=== PATIENT | male | born 1980 | race Caucasian/White ===

== ENCOUNTER 2025-08-02 07:07 | Inpatient (IN) | payer OTHER ==
[~2025-08-02] VITALS: Ht 175.3 cm; Wt 48.3 kg
[2025-08-02] MEDS ORDERED: HYDROX5L PO (07:30)
[2025-08-02] MEDS ORDERED: ATOR10TA69 PO (07:32)
[2025-08-02] MEDS ORDERED: PREG50 PO (07:35)
[2025-08-02] MEDS ORDERED: GABA-1181 PO (07:35)
[2025-08-02] MEDS ORDERED: METF-1211 PO (07:35)
[2025-08-02] MEDS ORDERED: DOXY50CA2 PO (07:35)
[2025-08-02 07:54] LABS: PLATELET COUNT (AUTO) 322 K/uL (150-450); RED BLOOD CELL COUNT(AUTO) 4.25 MIL/uL (4.50-5.90); RED CELL DISTRIBUTION WIDTH 13.6 % (11.5-14.5); WHITE BLOOD COUNT (AUTO) 7.9 K/uL (4.5-11.0)
[2025-08-02 08:01] LABS: CALCIUM, TOTAL 9.2 mg/dL (8.8-10.5); CREATININE 0.52 mg/dL (0.60-1.30); GLOMERULAR FILTR. RATE CALC > 60 mL/min (>60); GLUCOSE,RANDOM 308 mg/dL (70-110); SODIUM SERUM 140 mmol/L (136-145); UREA NITROGEN, BLOOD 4 mg/dL (7-18)
[2025-08-02] MEDS: INSULIN REGULAR, HUMAN 100 UNITS/ML SQ ONE (08:59)
[2025-08-02 11:50] VITALS: BP 110/75; PULSE 93; RESP 18; TEMP 98; O2SAT 97
[2025-08-02] MEDS ORDERED: ACETAMINOPHEN 325 MG TABLET PO PRN (12:30)
[2025-08-02] MEDS ORDERED: ONDANSETRON HCL 4 MG/2 ML VIAL IVP PRN (12:30)
[2025-08-02] MEDS ORDERED: DEXTROSE 50%-WATER 25 GM/50 ML SYRINGE IVP PRN (12:30)
[2025-08-02] MEDS ORDERED: ZOLPIDEM TARTRATE 5 MG TABLET PO PRN (12:30)
[2025-08-02] MEDS ORDERED: BISACODYL 10 MG RECTAL RECTAL SUPPOSITORY PR PRN (12:30)
[2025-08-02] MEDS ORDERED: MAGNESIUM HYDROXIDE SUSPENSION 30 ML UDCUP PO PRN (12:30)
[2025-08-02] MEDS ORDERED: HYDR25TA83 PO (12:36)
[2025-08-02] MEDS ORDERED: DOXY-354 PO (12:36)
[2025-08-02] MEDS ORDERED: SODIUM CHLORIDE 3% 15 ML NEB SOLUTION NEB ONE (14:57)
[2025-08-02 16:30] VITALS: PULSE 93; RESP 18; O2SAT 97
[2025-08-02] MEDS: HEPARIN SODIUM,PORCINE 5,000 UNITS/ML VIAL SQ SCH (17:23)
[2025-08-02] MEDS: INSULIN LISPRO 100 UNITS/ML SQ PRN (17:26)
[2025-08-02 19:59] VITALS: BP 123/73; PULSE 91; RESP 18; TEMP 98.2; O2SAT 96
[2025-08-02] MEDS: DOCUSATE SODIUM 100 MG CAPSULE PO SCH (21:00)
[2025-08-02] MEDS: INSULIN GLARGINE,HUM.REC.ANLOG 100 UNITS/ML SQ SCH (21:02)
[2025-08-02 22:49] LABS: MTB PCR w/Rif. Resistance-SPUT NOT DETECTED (Not Detectd)
[2025-08-02 23:41] VITALS: BP 99/60; PULSE 87; RESP 17; TEMP 98.2; O2SAT 99
[2025-08-03] MEDS ORDERED: SODIUM CHLORIDE 3% 15 ML NEB SOLUTION NEB ONE ×2 (01:35→20:30)
[2025-08-03 01:43] VITALS: PULSE 90; RESP 18; O2SAT 95
[2025-08-03 03:39] VITALS: BP 126/79; PULSE 84; RESP 17; TEMP 98.2; O2SAT 99
[2025-08-03 07:30] VITALS: BP 112/74; PULSE 89; RESP 18; TEMP 97.5; O2SAT 100
[2025-08-03] MEDS: PANTOPRAZOLE SODIUM 40 MG DR TABLET PO SCH (08:47)
[2025-08-03] MEDS: ATORVASTATIN CALCIUM 10 MG TABLET PO SCH (08:48)
[2025-08-03] MEDS: GABAPENTIN 300 MG CAPSULE PO SCH (08:48)
[2025-08-03 09:27] LABS: PLATELET COUNT (AUTO) 375 K/uL (150-450); RED BLOOD CELL COUNT(AUTO) 4.49 MIL/uL (4.50-5.90); RED CELL DISTRIBUTION WIDTH 13.3 % (11.5-14.5); WHITE BLOOD COUNT (AUTO) 9.6 K/uL (4.5-11.0)
[2025-08-03 09:32] LABS: CALCIUM, TOTAL 9.3 mg/dL (8.8-10.5); CREATININE 0.48 mg/dL (0.60-1.30); GLOMERULAR FILTR. RATE CALC > 60 mL/min (>60); GLUCOSE,RANDOM 83 mg/dL (70-110); SODIUM SERUM 141 mmol/L (136-145); UREA NITROGEN, BLOOD 7 mg/dL (7-18)
[2025-08-03 09:38] LABS: ASPARTATE AMINOTRANSFERASE 11.0 U/L (15-37); TOTAL PROTEIN, SERUM 7.3 g/dL (6.4-8.2)
[2025-08-03 10:30] VITALS: BP 119/78; PULSE 82; RESP 18; TEMP 98; O2SAT 99
[2025-08-03 11:06] LABS: GLUCOMETER DEV NAME(LOC) 5N.2C; GLUCOSE,POINT OF CARE 312 MG/DL (70-110)
[2025-08-03 11:06] LABS: GLUCOMETER DEV NAME(LOC) 5N.2C; GLUCOSE,POINT OF CARE 302 MG/DL (70-110)
[2025-08-03 11:06] LABS: GLUCOMETER DEV NAME(LOC) 5S.2E; GLUCOSE,POINT OF CARE 216 MG/DL (70-110)
[2025-08-03 11:45] LABS: GLUCOMETER DEV NAME(LOC) 5S.2E; GLUCOSE,POINT OF CARE 242 MG/DL (70-110)
[2025-08-03] MEDS: PYRAZINAMIDE 500 MG TABLET PO SCH (12:12)
[2025-08-03] MEDS: ETHAMBUTOL HCL 400 MG TABLET PO SCH (12:15)
[2025-08-03 15:28] VITALS: BP 113/72; PULSE 89; RESP 19; TEMP 98.1; O2SAT 98
[2025-08-03 17:56] LABS: GLUCOMETER DEV NAME(LOC) 5S.2E; GLUCOSE,POINT OF CARE 356 MG/DL (70-110)
[2025-08-03] MEDS: INSULIN GLARGINE,HUM.REC.ANLOG 100 UNITS/ML SQ SCH (20:16)
[2025-08-03 21:20] VITALS: BP 116/68; PULSE 92; RESP 18; TEMP 98.1; O2SAT 100
[2025-08-03 22:31] LABS: GLUCOMETER DEV NAME(LOC) 5N.2C; GLUCOSE,POINT OF CARE 74 MG/DL (70-110)
[2025-08-04] VITALS (7 sets, daily range): BP systolic 103–130; BP diastolic 56–80; PULSE 82–89; RESP 16–18; TEMP 97.8–98.6; O2SAT 98–100
[2025-08-04 06:15] LABS: PLATELET COUNT (AUTO) 371 K/uL (150-450); RED BLOOD CELL COUNT(AUTO) 3.99 MIL/uL (4.50-5.90); RED CELL DISTRIBUTION WIDTH 13.1 % (11.5-14.5); WHITE BLOOD COUNT (AUTO) 9.5 K/uL (4.5-11.0)
[2025-08-04 06:51] LABS: CALCIUM, TOTAL 8.9 mg/dL (8.8-10.5); CREATININE 0.51 mg/dL (0.60-1.30); GLOMERULAR FILTR. RATE CALC > 60 mL/min (>60); GLUCOSE,RANDOM 146 mg/dL (70-110); SODIUM SERUM 137 mmol/L (136-145); UREA NITROGEN, BLOOD 9 mg/dL (7-18)
[2025-08-04] MEDS ORDERED: 0.9% SODIUM CHLORIDE 5 ML NEB SOLUTION NEB ONE (08:21)
[2025-08-04 13:26] LABS: GLUCOMETER DEV NAME(LOC) 5S.2E; GLUCOSE,POINT OF CARE 262 MG/DL (70-110)
[2025-08-04 13:26] LABS: GLUCOMETER DEV NAME(LOC) 5S.2E; GLUCOSE,POINT OF CARE 144 MG/DL (70-110)
[2025-08-04 19:05] LABS: GLUCOMETER DEV NAME(LOC) 5N.2C; GLUCOSE,POINT OF CARE 196 MG/DL (70-110)
[2025-08-04 22:11] LABS: GLUCOMETER DEV NAME(LOC) 5N.2C; GLUCOSE,POINT OF CARE 154 MG/DL (70-110)
[2025-08-05 00:33] VITALS: BP 126/60; PULSE 84; RESP 18; TEMP 98.4; O2SAT 97
[2025-08-05 06:10] LABS: PLATELET COUNT (AUTO) 388 K/uL (150-450); RED BLOOD CELL COUNT(AUTO) 4.13 MIL/uL (4.50-5.90); RED CELL DISTRIBUTION WIDTH 13.3 % (11.5-14.5); WHITE BLOOD COUNT (AUTO) 8.7 K/uL (4.5-11.0)
[2025-08-05 06:17] VITALS: BP 112/72; PULSE 80; RESP 18; TEMP 98.7; O2SAT 98
[2025-08-05 06:54] LABS: CALCIUM, TOTAL 9.1 mg/dL (8.8-10.5); CREATININE 0.52 mg/dL (0.60-1.30); GLOMERULAR FILTR. RATE CALC > 60 mL/min (>60); GLUCOSE,RANDOM 159 mg/dL (70-110); SODIUM SERUM 135 mmol/L (136-145); UREA NITROGEN, BLOOD 13 mg/dL (7-18)
[2025-08-05] MEDS ORDERED: SODIUM CHLORIDE 3% 15 ML NEB SOLUTION NEB ONE (07:59)
[2025-08-05 08:30] VITALS: BP 101/61; PULSE 88; RESP 18; TEMP 98.1; O2SAT 97
[2025-08-05 12:29] VITALS: BP 102/68; PULSE 86; RESP 18; TEMP 98.4; O2SAT 98
[2025-08-05 16:46] VITALS: BP 115/75; PULSE 81; RESP 17; TEMP 98.6; O2SAT 98
[2025-08-05 17:26] LABS: GLUCOMETER DEV NAME(LOC) 5N.2C; GLUCOSE,POINT OF CARE 300 MG/DL (70-110)
[2025-08-05 17:31] LABS: GLUCOMETER DEV NAME(LOC) 5S.2E; GLUCOSE,POINT OF CARE 320 MG/DL (70-110)
[2025-08-05 17:31] LABS: GLUCOMETER DEV NAME(LOC) 5S.2E; GLUCOSE,POINT OF CARE 160 MG/DL (70-110)
[2025-08-05 22:34] LABS: MTB PCR w/Rif. Resistance-SPUT NOT DETECTED (Not Detectd)
[2025-08-06 00:28] VITALS: BP 131/73; PULSE 86; RESP 18; TEMP 98.4; O2SAT 99
[2025-08-06 04:41] VITALS: BP 112/82; PULSE 87; RESP 18; TEMP 98.6; O2SAT 99
[2025-08-06 05:26] LABS: GLUCOMETER DEV NAME(LOC) 5N.2C; GLUCOSE,POINT OF CARE 183 MG/DL (70-110)
[2025-08-06 06:06] LABS: QUANTIFERON+, Nil Value 0.02 IU/mL; QUANTIFERON+,Mitogen Value >10.00 IU/mL; QUANTIFERON+,TB1 Antigen Value >10.00 IU/mL; QUANTIFERON+,TB2 Antigen Value >10.00 IU/mL; QUANTIFERON, TB GOLD PLUS Positive (Negative)
[2025-08-06 06:24] LABS: PLATELET COUNT (AUTO) 375 K/uL (150-450); RED BLOOD CELL COUNT(AUTO) 4.04 MIL/uL (4.50-5.90); RED CELL DISTRIBUTION WIDTH 13.3 % (11.5-14.5); WHITE BLOOD COUNT (AUTO) 8.7 K/uL (4.5-11.0)
[2025-08-06 06:37] LABS: CALCIUM, TOTAL 9.0 mg/dL (8.8-10.5); CREATININE 0.66 mg/dL (0.60-1.30); GLOMERULAR FILTR. RATE CALC > 60 mL/min (>60); GLUCOSE,RANDOM 265 mg/dL (70-110); SODIUM SERUM 135 mmol/L (136-145); UREA NITROGEN, BLOOD 17 mg/dL (7-18)
[2025-08-06 08:49] VITALS: BP 112/74; PULSE 93; RESP 16; TEMP 98.3; O2SAT 99
[2025-08-06 14:41] LABS: GLUCOMETER DEV NAME(LOC) 5N.1D; GLUCOSE,POINT OF CARE 266 MG/DL (70-110)
[2025-08-06 14:41] LABS: GLUCOMETER DEV NAME(LOC) 5N.1D; GLUCOSE,POINT OF CARE 306 MG/DL (70-110)
[2025-08-06 16:01] VITALS: BP 109/68; PULSE 89; RESP 18; TEMP 97.9; O2SAT 98
[2025-08-06 18:41] LABS: GLUCOMETER DEV NAME(LOC) 5N.1D; GLUCOSE,POINT OF CARE 346 MG/DL (70-110)
[2025-08-06 19:48] VITALS: BP 112/77; PULSE 83; RESP 18; TEMP 98.4; O2SAT 99
[2025-08-06 23:26] VITALS: BP 107/71; PULSE 84; RESP 17; TEMP 97.9; O2SAT 100
[2025-08-07 03:24] VITALS: BP 124/68; PULSE 81; RESP 18; TEMP 98.2; O2SAT 98
[2025-08-07 06:20] LABS: GLUCOMETER DEV NAME(LOC) 5S.1E; GLUCOSE,POINT OF CARE 211 MG/DL (70-110)
[2025-08-07 08:00] VITALS: BP 122/74; PULSE 92; RESP 18; TEMP 98.2; O2SAT 99
[2025-08-07] MEDS ORDERED: INSULIN GLARGINE,HUM.REC.ANLOG 100 UNITS/ML SQ ONE (09:30)
[2025-08-07 12:30] VITALS: BP 113/69; PULSE 90; RESP 17; TEMP 98.1; O2SAT 98
[2025-08-07 13:00] LABS: GLUCOMETER DEV NAME(LOC) 5S.2E; GLUCOSE,POINT OF CARE 286 MG/DL (70-110)
[2025-08-07 13:56] LABS: GLUCOMETER DEV NAME(LOC) 5S.1E; GLUCOSE,POINT OF CARE 123 MG/DL (70-110)
[2025-08-07 15:15] VITALS: BP 115/70; PULSE 83; RESP 18; TEMP 98.2; O2SAT 100
[2025-08-07 18:06] LABS: GLUCOMETER DEV NAME(LOC) 5S.1E; GLUCOSE,POINT OF CARE 404 MG/DL (70-110)
[2025-08-07] MEDS: INSULIN LISPRO 100 UNITS/ML SQ ONE (18:20)
[2025-08-07] MEDS: INSULIN GLARGINE,HUM.REC.ANLOG 100 UNITS/ML SQ SCH (20:56)
[2025-08-07 20:58] VITALS: BP 95/65; PULSE 96; RESP 18; TEMP 98.1; O2SAT 98
[2025-08-07 21:36] VITALS: BP 109/64; RESP 19; O2SAT 99
[2025-08-08 00:08] VITALS: BP 109/72; PULSE 93; RESP 18; TEMP 98.2; O2SAT 98
[2025-08-08 01:45] LABS: GLUCOMETER DEV NAME(LOC) 5S.1E; GLUCOSE,POINT OF CARE 162 MG/DL (70-110)
[2025-08-08 01:45] LABS: GLUCOMETER DEV NAME(LOC) 5S.1E; GLUCOSE,POINT OF CARE 102 MG/DL (70-110)
[2025-08-08 01:45] LABS: GLUCOMETER DEV NAME(LOC) 5S.1E; GLUCOSE,POINT OF CARE 59 MG/DL (70-110)
[2025-08-08 04:30] VITALS: BP 116/72; PULSE 90; RESP 18; TEMP 98.2; O2SAT 98
[2025-08-08 06:05] LABS: GLUCOMETER DEV NAME(LOC) 5S.1E; GLUCOSE,POINT OF CARE 305 MG/DL (70-110)
[2025-08-08 07:45] LABS: GLUCOMETER DEV NAME(LOC) 5S.1E; GLUCOSE,POINT OF CARE 321 MG/DL (70-110)
[2025-08-08 08:34] VITALS: BP 123/73; PULSE 96; RESP 18; TEMP 98.2; O2SAT 100
[2025-08-08] MEDS ORDERED: INSULIN GLARGINE,HUM.REC.ANLOG 100 UNITS/ML SQ SCH (09:00)
[2025-08-08] MEDS ORDERED: ATOR10TA PO (11:12)
[2025-08-08] MEDS ORDERED: ETHA400T25 PO (11:14)
[2025-08-08] MEDS ORDERED: DOCU-385 PO (11:14)
[2025-08-08] MEDS ORDERED: INSLAN SQ (11:15)
[2025-08-08] MEDS ORDERED: HEPA50009 SQ (11:15)
[2025-08-08] MEDS ORDERED: PANT-31 PO (11:16)
[2025-08-08] MEDS ORDERED: METF-1211 PO (11:16)
[2025-08-08] MEDS ORDERED: PYRA500T33 PO (11:17)
[2025-08-08] MEDS ORDERED: ACET-2247 PO (11:20)
[2025-08-08 11:21] LABS: CALCIUM, TOTAL 9.3 mg/dL (8.8-10.5); CREATININE 0.59 mg/dL (0.60-1.30); GLOMERULAR FILTR. RATE CALC > 60 mL/min (>60); GLUCOSE,RANDOM 275 mg/dL (70-110); SODIUM SERUM 138 mmol/L (136-145); UREA NITROGEN, BLOOD 17 mg/dL (7-18)
[2025-08-08] MEDS ORDERED: INSU100V SQ (11:21)
[2025-08-08] MEDS ORDERED: BISA-151 PO (11:22)
[2025-08-08] MEDS ORDERED: MAGN-169 PO (11:22)
[2025-08-08] MEDS ORDERED: RIFA300C63 PO (11:23)
[2025-08-08 11:27] LABS: ASPARTATE AMINOTRANSFERASE 24 U/L (15-37); TOTAL PROTEIN, SERUM 7.2 g/dL (6.4-8.2)
[2025-08-08 11:46] VITALS: BP 99/74; PULSE 83; RESP 19; TEMP 98.2; O2SAT 99
== END 2025-08-08 12:30 | DRG 178 ==
LOC: EMS 07:13 → EDH 09:19 → 5N 11:18
PROVIDERS: ADMIT Internal Medicine; ATTEND Internal Medicine
DX: A15.9 Respiratory tuberculosis unspecified (principal); E44.0 Moderate protein-calorie malnutrition; E11.65 Type 2 diabetes mellitus with hyperglycemia; I10 Essential (primary) hypertension; Z68.1 Body mass index [BMI] 19.9 or less, adult; E78.00 Pure hypercholesterolemia, unspecified; Z79.4 Long term (current) use of insulin; Z79.899 Other long term (current) drug therapy
CPT/HCPCS: 71046; 71250; 80048; 80053; 80076; 82962; 85025; 86480; 86592; 87015; 87206; 87389; 87556; 94640; 96372; 99285; J1644; J1815; 36415-L1; 36415-TC